=== PATIENT | female | born 1945 | race Caucasian/White ===

== ENCOUNTER → 2017-08-01 | Day surgery (SDC) | payer MEDICARE ==
[~2017-08-01] MED LIST: BILB500C PO; BUPIVACAINE HCL PF 0.5% 10 ML VIAL ONE; CALC600T10 PO; CAPT50TA PO; DIPH2%T PO; ENOX30P SQ; FIBE625T10 PO; HYDR-2768 PO; HYDR200T42 PO; ISOSULFAN BLUE 50 MG/5 ML VIAL SQ ONE; KETOROLAC TROMETHAMINE 30 MG/ML (IVP) VIAL IV PUSH ONE; LACTATED RINGER'S 1000 ML INJ 1,000 ML ONE; LUTE6TAB2 PO; MEPERIDINE HCL 25 MG/ML VIAL ONE; MEVA40TA PO; MIDAZOLAM HCL 2 MG/2 ML VIAL ONE; MORPHINE SULFATE 4 MG/ML INJ ONE; OMEP20CA5 PO; ONDANSETRON HCL 4 MG/2 ML VIAL IV PUSH ONE; Oxycodone/Acetaminophen PO; PROPOFOL 200 MG/20 ML AMP IV ONE; SERT-132 OR; SODIUM CHLORIDE 0.9% INJ 10 ML ONE; ULTR50TA PO; VITA100020 PO; Z.0.CPM; ceFAZolin 2 GM PREMIX 50 ML ONE
--- NOTE | 2017-08-01 16:59 | TN ---
cc: LUCILLE LOZA DATE OF SURGERY: 08/01/2017 PRINCIPAL DIAGNOSIS Ductal carcinoma in situ of the right breast. POSTOPERATIVE DIAGNOSES Ductal carcinoma in situ of the right breast. PROCEDURE PERFORMED Right breast needle-localized lumpectomy and right axillary sentinel lymph node biopsy. SURGEON Lucille Loza MD. ANESTHESIA General via LMA device. INDICATION The patient is a 71-year-old female who is recently diagnosed with ductal carcinoma in situ involving a 4 cm segment of the 9 o'clock and subareolar right breast. She has opted for breast conservation and now presents for the procedure. FINDINGS AT SURGERY Two sentinel lymph nodes were identified. #1 had a count of 249 and was not blue. #2 was mildly enlarged and suspicious with no count. Specimen mammogram did demonstrate an intact wire and the clip was present along with the calcifications within the specimen. PROCEDURE PERFORMED After informed consent was obtained and site verification was performed, the patient was brought to the radiology suite where she underwent needle localization of her prior biopsy site as well as radionuclide peritumoral injection. She was then brought to the major operating room where she underwent general anesthesia via LMA device. The right breast and arm were prepped and draped in sterile fashion. A single dose of IV Ancef was given and sequential compression hose were placed. 3 cc of half-strength Lymphazurin were injected in the subareolar right breast and a 5-minute massage was performed. The right breast and arm were then prepped and draped in sterile fashion. An incision was anesthetized at the inferior aspect of the right axillary hairline and both sharp and electrocautery dissection were performed until the clavipectoral fascia was divided. The level I axilla was entered and there was a central level I palpable lymph node which was circumferentially dissected free from surrounding structures. This lymph node had no count and was called sentinel node #2. In the low level I location, there was a smaller axillary lymph node with a count of 249 and this was circumferentially dissected free from surrounding structures using the harmonic scalpel. A touch prep analysis was not performed and the nodes were sent separately for permanent pathologic evaluation. Good hemostasis was noted in the axilla and the wound was closed using interrupted 3-0 Vicryl subcutaneous sutures and a 4-0 Monocryl subcuticular suture. Attention was then turned to the right breast where a wire was located in the 9 o'clock location. There was a 4 cm area of calcifications both anterior and posterior to the wire. The skin incision was anesthetized with 0.5% Marcaine plain in a radial incision was created at 9 o'clock. The wire entry point through the skin was identified and secured with a hemostat and the wire was cut off at the skin with pin cutters. A 2-0 silk transfixion suture was placed at the wire entry point into the breast tissue and sharp and electrocautery dissection was then performed circumferentially around the wire to include a 4 cm area of breast tissue. The specimen was oriented with two sutures laterally, one long suture anteriorly, and one short suture superiorly. The superior margin did appear somewhat close and this was sharply reincised with a stitch on the new margin. Hemostasis was easily obtained with electrocautery and the wound was closed using interrupted 3-0 Vicryl subcutaneous sutures and a 4-0 Monocryl subcuticular suture. Steri-Strips and a sterile dressing were applied. The patient tolerated the procedure well with an estimated blood loss of 100 cc and she was extubated in the operating room and brought to the recovery room in good condition. MD ASYA Barr/santa /3:16 PM /4:47 PM
== END | disposition home or self-care (01) ==
LOC: ESDC 07:23
PROVIDERS: ATTEND Surgery
DX: D05.11 Intraductal carcinoma in situ of right breast (principal)
CPT/HCPCS: 00400; 01610; 19125; 38525; 38792; 88307; J0690; J1885; J2175; J2250; J2270; J2405; J3010; J7120; Q9968

== ENCOUNTER → 2017-08-22 | Day surgery (SDC) | payer MEDICARE ==
[~2017-08-22] MED LIST changes: -ISOSULFAN BLUE 50 MG/5 ML VIAL SQ ONE; -KETOROLAC TROMETHAMINE 30 MG/ML (IVP) VIAL IV PUSH ONE; -MEPERIDINE HCL 25 MG/ML VIAL ONE; -MORPHINE SULFATE 4 MG/ML INJ ONE; -SODIUM CHLORIDE 0.9% INJ 10 ML ONE
--- NOTE | 2017-08-22 13:53 | TN ---
cc: LUCILLE LOZA DATE OF SURGERY: 08/22/2017 PREOPERATIVE DIAGNOSIS Ductal carcinoma in situ of the right breast. POSTOPERATIVE DIAGNOSIS Ductal carcinoma in situ of the right breast. PROCEDURE PERFORMED Re-excision of right breast posterior and inferior lumpectomy margins. SURGEON Lucille Loza. ANESTHESIA General via LMA device. INDICATION The patient is a 71-year-old female noted to have a 4 cm area of microcalcifications in the right breast. She underwent an extensive lumpectomy but had residual involvement of the inferior and posterior margins with DCIS. She now presents for re-excision of the margins. FINDINGS At the time of surgery a large seroma cavity with overlying skin changes was identified. It did not appear infected. The fluid was cultured and Gram stain was performed. PROCEDURE After informed consent was obtained and site verification was performed, the patient was brought to the major operating room where she underwent general anesthesia via an LMA device. She was given a single dose of IV Ancef and sequential compression hose were placed. The right breast was prepped and draped in sterile fashion. The previous 9 o'clock lumpectomy incision was anesthetized with 0.5% Marcaine plain and re-incised sharply. The seroma cavity was evacuated and the fluid was sent for culture and Gram stain. The lumpectomy cavity was easily identified and there was no gross evidence of residual disease. The inferior margin was sharply re-excised in two segments with a stitch on the new margin and this was sent for permanent pathologic evaluation. The posterior margin was sharply demarcated with sutures on the new margin. This was also sent in two segments for permanent pathologic evaluation. Hemostasis was easily obtained with electrocautery and the wound was closed using interrupted 3-0 Vicryl subcutaneous sutures and a 4-0 Monocryl subcuticular suture. Steri-Strips and a sterile dressing were applied. The patient tolerated the procedure well with an estimated blood loss of 20 cc, and she was extubated in the operating room and brought to the recovery room in good condition. MD ASYA Barr/JD /1:33 PM /1:41 PM
== END | disposition home or self-care (01) ==
LOC: ESDC 10:11
PROVIDERS: ATTEND Surgery
DX: D05.11 Intraductal carcinoma in situ of right breast (principal)
CPT/HCPCS: 00400; 19301; 87070; 87205; 88307; J0690; J2250; J2405; J3010; J7120

== ENCOUNTER 2017-10-22 15:07 | Emergency (ER) | payer MEDICARE ==
[~2017-10-22] VITALS: Ht 167.6 cm; Wt 107.5 kg
[~2017-10-22 15:07] MED LIST changes: -BUPIVACAINE HCL PF 0.5% 10 ML VIAL ONE; -LACTATED RINGER'S 1000 ML INJ 1,000 ML ONE; -MIDAZOLAM HCL 2 MG/2 ML VIAL ONE; -ONDANSETRON HCL 4 MG/2 ML VIAL IV PUSH ONE; -PROPOFOL 200 MG/20 ML AMP IV ONE; -ceFAZolin 2 GM PREMIX 50 ML ONE
[2017-10-22 15:18] VITALS: BP 163/78; PULSE 77; RESP 20; TEMP 97.8; O2SAT 94
[2017-10-22] MEDS ORDERED: LUTE6CAP2 PO (15:38)
[2017-10-22] MEDS ORDERED: DIPH25CA PO (15:38)
[2017-10-22] MEDS ORDERED: BILB100C2 (15:38)
[2017-10-22] MEDS ORDERED: TRAM50 PO (15:38)
[2017-10-22] MEDS ORDERED: PLAQ200T PO (15:38)
[2017-10-22] MEDS ORDERED: OMEP20TA93 PO (15:38)
[2017-10-22] MEDS ORDERED: CAPT50TA PO (15:38)
[2017-10-22] MEDS ORDERED: CALC500T24 PO (15:38)
[2017-10-22] MEDS ORDERED: HYDR25TA5 PO (15:38)
[2017-10-22] MEDS ORDERED: SERT-132 PO (15:38)
[2017-10-22] MEDS ORDERED: TETANUS/DIPHTHERIA TOXOID ADULT 0.5 ML VIAL IM ONE (15:45)
--- NOTE | 2017-10-22 15:47 | PD ---
HPI Chief Complaint: Fall Time Seen by Provider: 15:20 Travel History International Travel<30 days: No Contact w/Intl Traveler<30days: No Traveled to known affect area: No History of Present Illness HPI The patient is a 71-year-old female who presents to the emergency department after trip and fall. The patient states she struck her left great toe against the curb and subsequently fell forward. The patient fell, landing forward, on her face. The patient denies any loss of consciousness. She denies any abrasions to the hands or knees, is unsure if the face was the first impact site. She does complain of swelling of the right frontal area associated with some abrasions, notes a mild headache, but denies any headache. She denies any chest pain, shortness breath, nausea, vomiting, or abdominal pain. The patient denies taking any anticoagulants. The patient denies any extremity pain except over the base of the left great toe. Symptoms are moderate, exacerbated after falling, and there are no current alleviating factors. She cannot recall her last tetanus administration date. PFSH Past Medical History Arthritis: Yes Depression: Yes Cancer: Yes (UTERINE, BREAST) Cardiovascular Problems: Yes (IRREGULAR HEARTRATE HX) High Cholesterol: Yes Chemotherapy: No Diabetes: No Endocrine: No Gastrointestinal Disorders: Yes GERD: Yes Genitourinary: No Hepatitis: No Hiatal Hernia: No Hypertension: Yes Immune Disorder: Yes (SCLERODERMA) Medical other: Yes (SCLERODERMA; MACULAR DEGENERATION) Musculoskeletal: Yes (ARTHRITIS- OA) Neurologic: No Psychiatric: Yes Reproductive: No Respiratory: No Radiation Therapy: Yes Past Surgical History Abdominal Surgery: Yes (SALPINGO/OOPHORECTOMY) Cardiac Surgery: No Ear Surgery: No Endocrine Surgery: No Eye Surgery: Yes (01/19 LEFT CATARACT SX) Genitourinary Surgery: No Gynecologic Surgery: Yes (VAGINAL HYSTERECTOMY) Joint Replacement: Yes (LT KNEE) Oral Surgery: Yes (TONSILLECTOMY) Pacemaker: No Thoracic Surgery: No Other Surgery: Yes (LUMPECTOMY) Social History Alcohol Use: No Tobacco Use: No Substance Use: No Allergies-Medications (Allergen,Severity, Reaction): Coded Allergies: acetaminophen (Unverified Allergy, Severe, Rash, 10/22/17) MILD REACTION aspirin (Unverified Allergy, Severe, N/V, 10/22/17) MILD REACTION hydrocodone (Unverified Allergy, Severe, Rash, 10/22/17) MILD REACTION onion (Unverified Allergy, Severe, Nausea/Vomiting, 10/22/17) MILD REACTION Reported Meds & Prescriptions Reported Meds & Active Scripts Active [Oxycodone/Acetaminophen] 1 TAB Tab 1 Tab PO Q4H PRN Reported Lutein 6 Mg Cap 6 Mg PO DAILY Omeprazole 20 Mg Tab 20 Mg PO DAILY Sertraline (Sertraline HCl) 50 Mg Tab 50 Mg PO DAILY Ultram (Tramadol HCl) 50 Mg Tab 50 Mg PO Q8H PRN Bilberry 100 Mg Capsule 500 Mg Plaquenil (Hydroxychloroquine Sulfate) 200 Mg Tab 200 Mg PO BID Take with food Review of Systems Except as stated in HPI: all other systems reviewed are Neg Eyes: No: Blurred Vision, Visual changes HENT: Positive: Headaches, No: Neck Pain Cardiovascular: No: Chest Pain or Discomfort Respiratory: No: Shortness of Breath Gastrointestinal: No: Nausea, Vomiting, Abdominal Pain Musculoskeletal: Positive: Pain, No: Edema Neurologic: No: Dizziness Physical Exam Narrative GENERAL: Awake, alert, pleasant 71-year-old female who appears her stated age and is in no acute respiratory distress. SKIN: Abrasion noted over the right forehead and over the right maxilla. HEAD: Hematoma noted over the right forehead with an abrasion as well as an abrasion over the right maxilla. EYES: Pupils equal and round. Pupils are 4 mm bilateral and reactive. EOMs are intact. The patient is able to see fingers at a distance of 2 feet without difficulty. ENT: No nasal bleeding or discharge. Mucous membranes pink and moist. NECK: Trachea midline. No JVD. No tenderness of the cervical vertebrae. CARDIOVASCULAR: Regular rate and rhythm. No murmur appreciated. RESPIRATORY: No accessory muscle use. Clear to auscultation. Breath sounds equal bilaterally. GASTROINTESTINAL: Abdomen soft, non-tender, nondistended. No rebound tenderness. MUSCULOSKELETAL: No obvious deformities. No clubbing. No cyanosis. Tenderness over the base of the left great toe. NEUROLOGICAL: Awake and alert. No obvious cranial nerve deficits. Motor grossly within normal limits. Normal speech. Nonfocal. Oriented 4. Follows commands without difficulty. Back: No tenderness over the thoracic lumbar vertebrae. PSYCHIATRIC: Appropriate mood and affect; insight and judgment normal. Data Data Last Documented VS Vital Signs Date Time Temp Pulse Resp B/P (MAP) Pulse Ox O2 Delivery O2 Flow Rate FiO2 10/22/17 15:18 97.8 77 20 163/78 (106) 94 Room Air Orders Orders Ct Brain W/O Iv Contrast(Rout) (10/22/17 ) Ct Cerv Spine W/O Contrast (10/22/17 ) Toe (Min 2vws) (10/22/17 ) Tetanus/Diphtheria Tox Adult (Tetanus/Di (10/22/17 15:45) Ct Facial Bones W/O Iv Cont (10/22/17 ) Shoe Post Op (10/22/17 ) Wound Care (10/22/17 17:34) MDM Medical Decision Making Medical Screen Exam Complete: Yes Emergency Medical Condition: Yes Medical Record Reviewed: Yes Differential Diagnosis Differential diagnoses includes closed head injury, intracranial hemorrhage, facial fracture, contusion, hematoma, abrasion. Narrative Course CT of the brain, cervical spine, and facial bones was ordered. X-ray left great toe was ordered. The patient's tetanus shot was updated. The patient's wounds were cleaned and Polysporin was applied. CT the brain, cervical spine, facial bones were noted, no acute fractures. X-ray the foot does reveal a fracture of the left great toe and the distal metatarsal at the joint. I considered a posterior short-leg splint versus postop shoe, I will place the patient in a postop shoe and refer them to podiatry. The patient declined pain medication. She is advised to clean her wounds twice a day with soap and water and apply Polysporin. Diagnosis Primary Impression: Closed head injury Qualified Codes: S09.90XA - Unspecified injury of head, initial encounter Additional Impression: Toe fracture, left Qualified Codes: S92.412A - Displaced fracture of proximal phalanx of left great toe, initial encounter for closed fracture Referrals: Tejal Roth DPM call for appointment Patient Instructions: General Instructions Additional Instructions: Postop she was directed. Elevate and ice the left foot. Clean wounds with Polysporin and abrasion. Please provide the patient a copy of her CT results and x-ray results at discharge. Follow-up with podiatry. Return if symptoms worsen or progress. Med/Other Pt SpecificInfo: Prescription(s) given Disposition: DISCHARGE HOME Condition: Stable Doron Ho MD Oct 22, 2017 15:47
--- NOTE | 2017-10-22 16:22 | RADRPT ---
EXAM DATE/TIME: 10/22/2017 16:02 [facility] COMPARISON: No previous studies available for comparison. INDICATIONS : Patient fell and hit face RADIATION DOSE: 28.88 CTDIvol (mGy) MEDICAL HISTORY : Cardiovascular disease. Hypertension. Carcinoma, breast. SURGICAL HISTORY : None. ENCOUNTER: Initial ACUITY: 1 day PAIN SCALE: 6/10 LOCATION: facial TECHNIQUE: Multiple contiguous axial images were obtained of the head. Using automated exposure control and adj ustment of the mA and/or kV according to patient size, radiation dose was kept as low as reasonably a chievable to obtain optimal diagnostic quality images. DICOM format image data is available electro nically for review and comparison. FINDINGS: CEREBRUM: Mild diffuse cerebral atrophy. The ventricles are normal for degree of atrophy. No evidence of midli ne shift, mass lesion, hemorrhage or acute infarction. No extra-axial fluid collections are seen. POSTERIOR FOSSA: The cerebellum and brainstem are intact. The 4th ventricle is midline. The cerebellopontine angle i s unremarkable. EXTRACRANIAL: The visualized portion of the orbits is intact. Small to moderate sized right anterior scalp soft tis joan hematoma. SKULL: The calvaria is intact. No evidence of skull fracture. CONCLUSION: 1. No acute intracranial abnormality. 2. Anterior right scalp soft tissue hematoma. Jose Pepe MD on October 22, 2017 at 16:17 Board Certified Radiologist. This report was verified electronically.
--- NOTE | 2017-10-22 16:35 | RADRPT ---
EXAM DATE/TIME: 10/22/2017 16:02 [facility] COMPARISON: No previous studies available for comparison. INDICATIONS : Patient fell and hit face RADIATION DOSE: 19.61 CTDIvol (mGy) MEDICAL HISTORY : Cardiovascular disease. Hypertension. Carcinoma, breast. SURGICAL HISTORY : None. ENCOUNTER: Initial ACUITY: 1 day PAIN SCALE: 0/10 LOCATION: neck TECHNIQUE: Volumetric scanning of the cervical spine was performed. Multiplanar reconstructions in the sagittal, coronal and oblique axial planes were performed. Using automated exposure control and adjustment o f the mA and/or kV according to patient size, radiation dose was kept as low as reasonably achievable to obtain optimal diagnostic quality images. DICOM format image data is available electronically f or review and comparison. FINDINGS: Vertebral body heights are maintained. Osseous structures are intact without evidence for acute bony fracture. Dens is intact. Subtle less than 2 mm anterolisthesis of C3 on C4. There is a normal C1-2 r elationship. Facets are normally aligned. There is no significant prevertebral soft tissue hematoma. No significant cervical adenopathy or gross mass. Multilevel facet arthropathy. Advanced degenerative spondylosis of the lower cervical spine most prominently at C4-6 with severe disc space loss and ost eophyte formation. There are multiple nodules noted in the right thyroid lobe and several coarse calc ifications. The largest nodule measures 1.6 cm. Visualized lung apices are clear without pneumothorax . CONCLUSION: 1. Subtle less than 2 mm anterolisthesis of C3 on C4, likely degenerative. Consider flexion and exten chasidy views if there is clinical concern regarding ligamentous instability. 2. No acute fracture. 3. Advanced multilevel degenerative spondylosis of the cervical spine most prominently at C4-6. Jose Pepe MD on October 22, 2017 at 16:28 Board Certified Radiologist. This report was verified electronically.
--- NOTE | 2017-10-22 16:45 | RADRPT ---
EXAM DATE/TIME: 10/22/2017 16:02 [facility] COMPARISON: No previous studies available for comparison. INDICATIONS : Patient fell and hit face RADIATION DOSE: 52.43 CTDIvol (mGy) MEDICAL HISTORY : Cardiovascular disease. Hypertension. Carcinoma, breast. SURGICAL HISTORY : None. ENCOUNTER: Initial ACUITY: 1 day PAIN SCORE: 5/10 LOCATION: facial TECHNIQUE: Volumetric scanning of the facial bones was performed. Using automated exposure control and adjustme nt of the mA and/or kV according to patient size, radiation dose was kept as low as reasonably achiev able to obtain optimal diagnostic quality images. DICOM format image data is available electronicall y for review and comparison. FINDINGS: ORBITS: The orbital and infraorbital osseous structures are intact. The retroconal structures have a normal configuration. No radiopaque foreign bodies are seen. NASAL BONE: The nasal bone and maxillary spine are intact ZYGOMATIC ARCHES: Symmetric without evidence of fracture. SINUSES: Mucoperiosteal thickening with central calcification in the right posterior ethmoid air cells. T he maxillary and frontal sinuses are intact. No air-fluid levels seen. NASAL CAVITY: The nasal septum is intact and midline. The lacrimal ducts are intact. SOFT TISSUES: Moderate-sized anterior right frontal scalp soft tissue hematoma. INTRACRANIAL: No intracranial air seen. CRIBIFORM PLATE: Grossly intact. CONCLUSION: 1. Moderate-sized anterior right frontal scalp soft tissue hematoma. 2. Chronic appearing posterior right sphenoid sinus mucosal disease. 3. No acute facial bone fractures. Jose Pepe MD on October 22, 2017 at 16:40 Board Certified Radiologist. This report was verified electronically.
--- NOTE | 2017-10-22 16:54 | RADRPT ---
EXAM DATE/TIME: 10/22/2017 16:22 [facility] COMPARISON: No previous studies available for comparison. INDICATIONS : Left foot, 1st digit pain after fall. MEDICAL HISTORY : None. SURGICAL HISTORY : None. ENCOUNTER: Initial ACUITY: 1 day PAIN SCORE: 10/10 LOCATION: Left foot, 1st digit. FINDINGS: There is a nondisplaced fracture of the medial proximal first phalanx. There is also a subtle cortica l step off of the head of the first metatarsal. Remaining osseous structures appear intact. The joint spaces are maintained. CONCLUSION: 1. Nondisplaced fracture of the medial proximal first phalanx with probable subtle fracture of the fi rst metatarsal head extending to the articular surface. Jose Pepe MD on October 22, 2017 at 16:49 Board Certified Radiologist. This report was verified electronically.
== END 2017-10-22 19:17 | disposition home or self-care (01) ==
LOC: NEPC 15:07
DX: S92.412A Displaced fracture of proximal phalanx of left great toe, initial encounter for closed fracture (principal); S09.90XA Unspecified injury of head, initial encounter; S00.81XA Abrasion of other part of head, initial encounter; S00.83XA Contusion of other part of head, initial encounter; I10 Essential (primary) hypertension; M19.90 Unspecified osteoarthritis, unspecified site; E78.00 Pure hypercholesterolemia, unspecified; W01.0XXA Fall on same level from slipping, tripping and stumbling without subsequent striking against object, initial encounter; Z23 Encounter for immunization
CPT/HCPCS: 70450; 70486; 72125; 73660; 90471; 90714; 99285; L3260